=== PATIENT | male | born 1965 | race Caucasian/White ===

== ENCOUNTER 2020-01-01 15:33 | Emergency (ER) | payer BC, SELFPAY ==
--- NOTE | 2020-01-01 15:47 | ED_ITS ---
HPI - CPR General Stated Complaint: AMB Time Seen by Provider: 01/01/20 15:33 Source: family and EMS Mode of arrival: EMS Limitations: no limitations History of Present Illness HPI narrative: 54-year-old man brought to the emergency department by EMS and pulseless arrest from his home. He was found to be unresponsive and pulseless. EMS arrived at the scene and started CPR at 3:15 p.m. He was last seen consci ous 30 minutes prior. He has a history of leukemia. The family states that they were recently considering hospice care. Patient was found pulseless and in asystole by EMS and after achieving IV access gave him 1 mg of epinephrine. After they began transport he was noted to have ventricular fibrillation and was shocked once and given another dose of epinephrine. CPR continued. complaint: found unresponsive Onset (ago): minute(s) (30-45) Timing confirmed by: family member Place: home Number of shocks delivered: 1 Downtime before ACLS arrival (mins): 30 Initial findings in the field: unresponsive, no pulse and PEA ROSC in the field: No Associated injuries: No Known history of: cancer Treatments prior to arrival: chest compressions, defibrillated shocks # (1) and epinephrine mgs # (2) Related Data Allergies Allergy/AdvReac Type Severity Reaction Status Date / Time No Known Allergies Allergy Uncoded 03/15/19 11:05 Review of Systems Review of Systems: ROS unobtainable: Yes unobtainable due to medical condition [facility] Past Medical History Medical History (Updated 01/01/20 @ 16:08 by Jay Mirza MD) Leukemia Social History Social History (Updated 01/01/20 @ 15:58 by Jay Mirza MD) Smoking status: Never smoker Alcohol intake: never Substance use: never Living arrangements: with family Exam Const: Other: Unresponsive Eyes: Other: No pupillary response, negative doll's eyes movt. Neck: Neck: normal visual inspection Chest: Chest palpation & inspection: normal inspection of the chest Resp: Other: No respiratory effort. Symmetric air movement on auscultation with bagging Cardio: Other: No pulses proximally or distally. No pericordial heart sounds Skin: General skin exam: pallor Neuro: Other: no voluntary movement, no pain response, Extrem: General: normal to inspection and no clubbing, cyanosis or edema Course Course Emergency Course: Patient arrived at 3:30 p.m. CPR in progress. There in an IO in his left leg. The patient was given 1 mg of epinephrine through the IO. Effective CPR was performed based on distal pulses. He remained pulseless and in asystole with no respiratory effort, pupil reaction, or doll's eyes reflex. I discussed his likely outcomes with the significant other (his girlfriend) given his unresponsiveness to therapy so far. She states that he did not want to be intubated or have his life prolonged. Life-saving efforts were ceased at 3:37 p.m. at which time he was pronounced. Discharge Plan Discharge Clinical Impression: Cardiorespiratory arrest, History of leukemia Patient Disposition: Condition: Terminal Follow-up/Referrals: Katiuska,John Arceo MD [Primary Care Provider] - Time of Disposition: 16:08
== END 2020-01-01 15:37 | disposition expired ==
PROVIDERS: Emergency Provider Emergency Medicine; PCP Family Medicine
DX: I46.9 Cardiac arrest, cause unspecified (principal); C95.90 Leukemia, unspecified not having achieved remission
CPT/HCPCS: 92950; 96372; 99283; 99285; J0171